=== PATIENT | male | born 1960 | race Caucasian/White ===

== ENCOUNTER 2024-12-27 10:57 | Outpatient (CLI) | payer MEDICARE, SELFPAY ==
--- NOTE | ~2024-12-27 | XR_ITS ---
CHEST RADIOGRAPH, PA AND LATERAL CLINICAL HISTORY: cough/RSV/ Bilateral Crepts . COMPARISON: None available TECHNIQUE: PA and lateral views of the chest. FINDINGS The cardiomediastinal silhouette is unremarkable. The lungs are clear. Visualized osseous structures and soft tissues are unremarkable. IMPRESSION: No focal infiltrate or effusion. Reviewed, dictated and finalized at location A. ET SUPERVISOR
[2024-12-27 11:18] LABS: Basophils Absolute Auto 0.07 K/mm3 (0.00-0.10); Basophils Percent Auto 0.7 % (0.0-1.0); Eosinophils Absolute Auto 0.54 K/mm3 (0.02-0.50); Eosinophils Percent Auto 5.5 % (1.0-6.0); Hematocrit 39.6 % (37.0-46.0); Hemoglobin 13.2 g/dL (12.4-15.3); Immature Granulocyte Absolute 0.06 K/mm3 (0.00-0.00); Immature Granulocyte Percent A 0.6 % (0.0-0.0); Lymphocytes Absolute Auto 2.14 K/mm3 (1.10-4.50); Lymphocytes Percent Auto 21.6 % (18.0-42.0); Mean Corpuscular HGB Conc 33.3 g/dL (32-36); Mean Corpuscular Hemoglobin 29.9 pg (27.0-31.0); Mean Corpuscular Volume 89.6 fL (78.0-102.0); Mean Platelet Volume 9.1 fl (8.7-11.0); Monocytes Absolute Auto 0.88 K/mm3 (0.10-0.90); Monocytes Percent Auto 8.9 % (2.0-11.0); Neutrophils Percent Auto 62.7 % (50.0-70.0); Platelet Count Result 385 K/mm3 (150-420); Red Blood Count 4.42 M/mm3 (4.70-6.10); White Blood Count 9.9 K/mm3 (4.8-10.8)
[2024-12-27 11:32] LABS: Alanine Aminotransferase 29 U/L (16-63); Albumin Level 3.2 g/dL (3.4-5.0); Alkaline Phosphatase 62 U/L (46-116); Anion Gap 9 mmol/L (4-12); Aspartate Amino Transferase 25 U/L (15-37); Bilirubin,Total 0.7 mg/dL (0.00-1.00); Blood Urea Nitrogen 16 mg/dL (7-18); Calcium 9.2 mg/dL (8.5-10.1); Carbon Dioxide 30 mmol/L (21-32); Chloride 103 mmol/L (98-108); Estimated Glomerular Filt Rate > 60; Glucose 110 mg/dL (70-99); Osmolality Calculated 296 mOsm/kg (285-295); Potassium 3.6 mmol/L (3.5-5.1); Sodium 142 mmol/L (136-145); Total Protein 7.7 g/dL (6.4-8.2)
[2024-12-27 11:56] LABS: SARS-CoV-2 RNA PCR Negative (Negative)
[2024-12-27 11:59] LABS: Influenza A QL RT-PCR Negative (Negative); Influenza B QL RT-PCR Negative (Negative); RSV RNA, RT-PCR Negative (Negative)
--- OUTSIDE RECORDS SUMMARY | 2024-12-27 12:11 | XMS_ITS | Clinical Summary ---
Author Organization [facility] Address [address] [place] [address] [place] [address] Care Team Providers Care Tar Kettle Runner Name Role Phone Irasema Farfan MD Primary Care Provider [phone] Cheryl Stauffer MD Unavailable Un available Allergies No known active allergies Medications nitroGLYCERIN 0.4 MG SL tablet Maximum of 3 doses, one tablet every 5 minutes. 25 tablet 1 02/26/2017 Active ASPIRIN 81 MG tablet Take 81 mg by mouth daily. 0 01/08/2017 Active atenolol 50 MG tablet Take 50 mg by mouth daily. 0 12/25/2016 Active atorvastatin 40 MG tablet Take 40 mg by mouth daily. 0 12/14/2016 Active metFORMIN 500 MG 24 hr tablet 1,000 mg 2 (two) times daily before meals. 01/07/2017 Active omeprazole 20 MG capsule TAKE 1 CAPSULE(S) BY MOUTH DAILY 0 12/14/2016 Active predniSONE 50 MG tablet On 03/24/17 Take 1 tab at 2:30am, 1 tab at 8:30am and 1 tab at 2:30pm. 4 tablet 03/18/2017 Active diphenhydrAMINE 25 MG tablet Take 1 tab at 2:30pm on 03/24/17. 0 03/18/2017 Active Active Problems Problem Noted Date Diagnosed Date Type 2 diabetes mellitus wit hout complication ([facility]) 03/13/2017 Dyslipidemia 03/13/2017 Hypertension Chest pain Overview (03/13/2017): cathed Family History Medical History Relation Comments Stent Cardiac Brother Heart Attack Father Relation Status Comments Brother Alive 4 stents Father (Age 38) Social History Tobacco Use Types Packs/Day Years Used Date Smoking Tobacco: Former Cigarettes Q uit: 03/13/1985 Alcohol Use Standard Drinks/Week Comments Yes 0 (1 standard drink = 0.6 oz pur e alcohol) glass of wine every day. Sex and Gender Information Value Date Recorded Sex Assigned at Not on file Legal Sex Male 8:46 PM CDT Gender Identity Not on file Sexual Orientation Not on file Last Filed Vital Signs Vital Sign Reading Time Taken Comments Blood Pressure 142/90 03/13/2017 9:20 AM CDT Pulse 72 03/13/2017 9:20 AM CDT Temperature - - Respiratory Rate 16 03/13/2017 9:20 AM CDT Oxygen Saturation - - Inhaled Oxygen Concentration - - Weight 93.9 kg (207 lb) 03/13/2017 9:20 AM CDT Height 175.3 cm (5' 9 ) 03/13/2017 9:20 AM CDT Body Mass Index 30.57 03/13/2017 9:20 AM CDT Plan of Treatment Health Maintenance Due Date Last Done Comments Colorectal Cancer Screening Colonoscopy (10 Years) 1958 Kidney Health Evaluation 1958 Hemoglobin A1C 1958 Pneumococcal Vaccine: 65+ Ye ars (1 of 2 - PCV) 1964 Diabetes: Retinopathy Eye Exam 1976 Hepatitis C 1976 DTaP, Tdap and Td Vaccines ( 1 - Tdap) 1977 Zoster Vaccines (1 of 2) 2008 Lipid Panel 02/26/2018 02/26/2017 COVID-19 Vaccine ( - 2023-2 5 season) 2024 Influenza Adult (#1) 2024 RSV Immunization or 60+ Years (1 - 1-dose 75+ series) 2033 Meningococcal B Vaccine Aged Out No l onger eligible based on patient's age to complete this topic Meningococcal Vaccine Aged Out No raza mulugeta eligible based on patient's age to complete this topic RSV Immunizations Under 20 Months Aged Out No longer eligible based on patient's age to complete this topic Procedures Procedure Name Priority Date/Time Associated Diagnosis Comments LIPID PANEL STAT 02/26/2017 3:35 AM CDT from Last 3 Months or Most Recently Relevant to Health Maintenance Results * (ABNORMAL) LIPID PANEL (02/26/2017 3:35 AM CDT) CHOLESTEROL 181 0 - 200 MG/DL 02/26/2017 12:33 PM CDT [facility] Comment:DESIRABLE: <200 TRIGLYCERIDES 754(H) 0 - 149 MG/DL 02/26/2017 12:33 PM CDT [facility] Comment:>499 VERY HIGH HDL 23(L) >39 MG/DL 02/26/2017 12:33 PM CDT [facility] Comment:LOW: <40 DIRECT LDL 66 0 - 129 MG/DL 02/26/2017 12:33 PM CDT [facility] Comment:<100 OPTIMAL 02/26/2017 3:35 AM CDT 02/26/2017 11:53 AM CDT us Generic Conversion Md [facility] Final R esult [facility] [address] [place] [address], [id number] from Last 3 Months or Most Recently Relevant to Health Maintenance Insurance [facility] Care Teams Tar Kettle Runner Relationship Specialty Start Date End Date Irasema Farfan MD [address] [place] [address] PCP - General INTERNAL MEDICINE 02/27/17 Cheryl Stauffer MD [address] [place] [address] CARDIOVASCULAR DISEASE 02/27/17
--- OUTSIDE RECORDS SUMMARY | 2024-12-27 12:11 | XMS_ITS | CONTINUITY OF CARE DOCUMENT ---
Author Name gerardcharlie gerardcharlie Address Unknown Organization [facility] Address [address] [place] [address] Phone [phone] Care Team Providers Care Rn Hematology Name Role Phone Olayinka Muro MD Unavailable ALINA POLLOCK MD Unavailable ALINA POLLOCK MD Unavailable PROBLEMS Condition Status Date Provider Notes Diabetes mellitus, Type II active Olayinka vaca MD Hypercholesterolemia active Olayinka Muro MD Family History Coronary Hear t Disease male < 55: completed - Siria Judge MD Family History Coronary Hear t Disease male < 55: completed - Siria Judge MD Family History of Hypertension: completed - Franklin Judge MD Family History of Hypertension: completed - Franklin Judge MD GERD active Olayinka Muro MD HTN essential active Siria Judge MD ENCOUNTERS Date Type Provider Location Encounter Diag nosis - In-person encounter Office Visit Siira Judge MD [facility] Family History Coronary Heart Disease male < 55:Family History Coronary Heart Disease male < 55:Family History of Hypertension:Family History of Hypertension:HTN essential - In-person encounter Office Visit Olayinka [facility] Diabetes mellitus, Type IIHypercholesterolemiaGERD VITAL SIGNS Date Observation Value Provider Body Mass Index (Ratio) 30.42 kg/m2 Carolyn Judge MD blood pressure, diastolic 88 mm[Hg] Franklin Judge MD blood pressure, systolic 150 mm[Hg] Kiera Judge MD pulse rate 67 /min Siria Judge MD oxygen saturation, oximetry 97 % Siria Judge MD weight E&M 212 [lb_av] Siria Judge MD pulse rate 60 /min Olayinka Muro MD blood pressure, diastolic 86 mm[Hg] Us lizy Muro MD blood pressure, systolic 146 mm[Hg] Jacinda Muro MD oxygen saturation, oximetry 98 % Olayinka Muro MD respiratory rate E&M 20 /min Olayinka tejeda MD weight E&M 212 [lb_av] Olayinka Muro MD height E&M 70 [in_i] Olayinka Muro MD ALLERGIES Allergy Name Onset Date Reaction Criticality Status CATS Sneezing Sneezing Low Criticality ac tive CHICKEN Sneezing Sneezing Low Criticality ac tive HISTORY OF MEDICATION USE Medication Status Instructions Dates Provider Indications Com ments OMEPRAZOLE 20 MG ORAL CAPSULE DELAYED RELEASE active ONE TAB. DAILY Olayinka Muro MD LISINOPRIL-HYDROCH LOROTHIAZIDE 20-12.5 MG ORAL TABLET active 2 tablets daily Siria Judge MD ATENOLOL 50 MG ORAL TABLET active ONE TAB. DAILY Olayinka Muro MD ATORVASTATIN CALCIUM 40 MG ORAL TABLET active Olayinka Muro MD ASPIRIN 81 MG ORAL TABLET active ONE TAB. DAILY Olayinka Muro MD SOCIAL HISTORY Date Observation Value Provider alcohol use, average drinks per day 2 /d Siria Judge MD alcohol use, type Wine Siria yin MD alcohol use yes Siria Judge MD caffeine use, averag e drinks per day 2 /d Siria Judge MD drug use no Siria Judge MD smoking/tobacco cess ation, patient education and counseling No Siria Judge MD cigarette use yes Siria Judge MD smoking status Former smoker Siria rosen MD social history reviewed E&M revi ewed - no changes required Siria Judge MD smoking/tobacco cess ation, patient education and counseling yes Olayinka Muro MD alcohol use, average drinks per day 2 /d Olayinka Muro MD alcohol use, type Wine Olayinka fernandez MD alcohol use yes Olayinka uMro MD caffeine use, averag e drinks per day 2 /d Olayinka Muro MD cigarette use yes Olayinka Sykes social history reviewed E&M revi ewed - no changes required Olayinka Muro MD social history E&M 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 A lcohol Use - yes R egular Exercise - no D rug Use - no Smoking History: Arina estevez is a former smoker. Olayinka Muro MD drug use no Olayinka Muro MD smoking status Former smoker Olayinka Muro MD FAMILY HISTORY Family Member Condition Full Sister Family History of Hy pertension: Mother Family History of Hy pertension: Full Brother Family History of Co ronary Artery Disease: Full Brother Family History Coron luz Heart Disease male < 55: Father Family History Coron luz Heart Disease male < 55: INSURANCE PROVIDERS Payer name Policy type / Coverage type [place] [employer] [id number] T[facility] Date Name Performer faxed to pcp printed to nivia: Reji is updated medication list for this problem includes: Omeprazole 20 Mg Cpdr (Omeprazole) ..... One tab. daily Siria Judge MD faxed to pcp printed to nivia: H is updated medication list for this problem includes: Lisinopril-hydrochlorothiazide 20-12.5 Mg Tabs (Lisinopril-hydrochlorothiazide) ..... 2 tablets daily Aspirin 81 Mg Tabs (Aspirin) ..... One tab. daily Siria Judge MD faxed to pcp printed to nivia: H is updated medication list for this problem includes: Lisinopril-hydrochlorothiazide 20-12.5 Mg Tabs (Lisinopril-hydrochlorothiazide) ..... 2 tablets daily Atenolol 50 Mg Tabs (Atenolol) ..... One tab. daily Aspirin 81 Mg Tabs (Aspirin) ..... One tab. daily Siria Judge MD faxed to pcp printed to nivia Judge MD
== END 2024-12-27 10:58 | disposition home or self-care (01) ==
LOC: CHSLAB 11:05
PROVIDERS: PCP Internal Medicine; Visit Provider Internal Medicine
DX: R05.9 Cough, unspecified (principal)
CPT/HCPCS: 36415; 71046; 80053; 85025; 87637